=== PATIENT | female | born 1965 | race Caucasian/White ===

== ENCOUNTER 2020-08-04 10:59 | Emergency (ER) | payer BC ==
[~2020-08-04 10:59] MED LIST: ASPIRIN EC81 MG PO; ATORVASTATIN CA40 MG PO; BUDESONIDE0.5 MG/2 M INH; MECLIZINE HCL25 MG PO; MELATONIN3 MG PO; PROAIR DIGIHAL90 MCG INH; SIMVASTATIN20 MG PO; SYMBICORT 16010.2 GM INH; TENORMIN 25 MG25 MG PO; TRIMETHOPRIM100 MG PO
[2020-08-04 13:51] LABS: HEMOGLOBIN 15.3 gm/dl (12.3-15.3); RED BLOOD COUNT 5.12 M/UL (4.00-5.10); WHITE BLOOD COUNT 8.8 K/UL (4.5-11.0)
[2020-08-04 14:19] LABS: BUN/CREATININE RATIO 17 (0-10)
[2020-08-09] MEDS ORDERED: CLARITIN 10MG T10 MG PO (10:14)
[2020-08-09] MEDS ORDERED: MONTELUKAST SOD10 MG PO (10:14)
[2020-08-09] MEDS ORDERED: ZOFRAN ODT 4 MG4 MG PO (10:14)
[2020-08-09] MEDS ORDERED: IPRAT-ALBUT 0.5-3 ML NEB (10:14)
[2020-08-09] MEDS ORDERED: MILLIPRED5 MG PO (10:14)
[2020-08-09] MEDS ORDERED: FLONASE 0.05% N16 GM (10:14)
[2020-08-09] MEDS ORDERED: GLUCOPHAGE 500500 MG PO (10:14)
[2020-08-09] MEDS ORDERED: METOPROLOL SUCC25 MG PO (10:14)
[2020-08-09] MEDS ORDERED: TESSALON PERLE100 MG PO (17:19)
[2020-08-09] MEDS ORDERED: CRESTOR40 MG PO (17:21)
== END 2020-08-04 17:00 | disposition home or self-care (01) ==
LOC: ER1 10:59
PROVIDERS: Physician Assistant
DX: J20.9 Acute bronchitis, unspecified (principal); J45.901 Unspecified asthma with (acute) exacerbation; R07.89 Other chest pain; E11.9 Type 2 diabetes mellitus without complications; I10 Essential (primary) hypertension; Z20.822 Contact with and (suspected) exposure to COVID-19; Z90.710 Acquired absence of both cervix and uterus; Z90.49 Acquired absence of other specified parts of digestive tract; Z88.5 Allergy status to narcotic agent; Z88.1 Allergy status to other antibiotic agents
CPT/HCPCS: 0240U; 36600; 71045; 80053; 82550; 82553; 82803; 83874; 84484; 85025; 87081; 87880; 93005; 94640; 94664; 96374; 99285; J2930

== ENCOUNTER 2020-08-06 05:02 | Inpatient (IN) | payer BC ==
[~2020-08-06] VITALS: Ht 165.1 cm; Wt 95.3 kg
[2020-08-06 05:27] LABS: RED BLOOD COUNT 4.74 M/UL (4.00-5.10); WHITE BLOOD COUNT 10.3 K/UL (4.5-11.0)
[2020-08-06 05:51] LABS: BUN/CREATININE RATIO 16 (0-10)
[2020-08-06] MEDS ORDERED: SIMVASTATIN20 MG PO (08:52)
[2020-08-06] MEDS ORDERED: HYDROXYZINE HCL25 MG PO (08:53)
[2020-08-06] MEDS ORDERED: OMEPRAZOLE40 MG PO (08:54)
[2020-08-06] MEDS ORDERED: ACID CONTROLLER20 MG PO (08:54)
[2020-08-06] MEDS ORDERED: ESTRADIOL0.5 MG PO (08:55)
[2020-08-06] MEDS ORDERED: PROMETRIUM 200200 MG PO (08:55)
--- NOTE | 2020-08-06 12:29 | NUR ---
NOTIFIED BY TELEMETRY THAT THEY HAVE NO PULSE OXIMETRY MONITORING AVAILABLE FOR PATIENT AT THIS TIME. WILL BE NOTIFIED BY TELEMETRY WHEN ONE IS AVAILABLE. WILL MONITOR USING DYNAMAP FOR CURRENT TIME.
[2020-08-07 05:30] LABS: HEMOGLOBIN 13.8 gm/dl (12.3-15.3); RED BLOOD COUNT 4.7 M/UL (4.00-5.10); WHITE BLOOD COUNT 12.4 K/UL (4.5-11.0)
[2020-08-07 05:48] LABS: BUN/CREATININE RATIO 18 (0-10)
--- NOTE | 2020-08-08 02:11 | NUR ---
REPORT CALLED TO [facility], PATIENT BEING MOVED TO [id number]
--- NOTE | 2020-08-08 03:11 | NUR ---
08/08/2020 @ 02:20 - PATIENT TRANSFERRED TO [facility] FROM 4TH FLOOR. UPON ASSESSMENT, PATIENT IS STABLE. NO ACUTE CHANGES FROM ASSESSMENT PERFORMED BY PREVIOUS RN ON [place] [id number] ARE NOTED.
[2020-08-09 06:06] LABS: HEMOGLOBIN 14.9 gm/dl (12.3-15.3); RED BLOOD COUNT 4.97 M/UL (4.00-5.10); WHITE BLOOD COUNT 10.7 K/UL (4.5-11.0)
[2020-08-09 06:51] LABS: BUN/CREATININE RATIO 20 (0-10)
[2020-08-09] MEDS ORDERED: MILLIPRED5 MG PO (10:14)
[2020-08-09] MEDS ORDERED: FLONASE 0.05% N16 GM (10:14)
[2020-08-09] MEDS ORDERED: GLUCOPHAGE 500500 MG PO (10:14)
[2020-08-09] MEDS ORDERED: ZOFRAN ODT 4 MG4 MG PO (10:14)
[2020-08-09] MEDS ORDERED: CLARITIN 10MG T10 MG PO (10:14)
[2020-08-09] MEDS ORDERED: METOPROLOL SUCC25 MG PO (10:14)
[2020-08-09] MEDS ORDERED: MONTELUKAST SOD10 MG PO (10:14)
[2020-08-09] MEDS ORDERED: IPRAT-ALBUT 0.5-3 ML NEB (10:14)
[2020-08-09] MEDS ORDERED: TESSALON PERLE100 MG PO (17:19)
[2020-08-09] MEDS ORDERED: CRESTOR40 MG PO (17:21)
[2020-08-12 00:11] LABS: D001-IGE D PTERONYSSINUS <0.10 kU/L (Class 0); D002-IGE D FARINAE <0.10 kU/L (Class 0); E001-IGE CAT DANDER <0.10 kU/L (Class 0); E005-IGE DOG DANDER <0.10 kU/L (Class 0); G002-IGE BERMUDA GRASS <0.10 kU/L (Class 0); G006-IGE TIMOTHY GRASS <0.10 kU/L (Class 0); M001-IGE PENICILLIUM CHRYSOGEN <0.10 kU/L (Class 0); M002-IGE CLADOSPORIUM HERBARUM <0.10 kU/L (Class 0); M003-IGE ASPERGILLUS FUMIGATUS <0.10 kU/L (Class 0); M006-IGE ALTERNARIA ALTERNATA <0.10 kU/L (Class 0); T001-IGE MAPLE/BOX ELDER <0.10 kU/L (Class 0); T003-IGE COMMON SILVER BIRCH <0.10 kU/L (Class 0); T006-IGE CEDAR, MOUNTAIN <0.10 kU/L (Class 0); T007-IGE OAK, WHITE <0.10 kU/L (Class 0); T010-IGE WALNUT <0.10 kU/L (Class 0); T011-IGE MAPLE LEAF SYCAMORE <0.10 kU/L (Class 0); T014-IGE COTTONWOOD <0.10 kU/L (Class 0); T015-IGE ASH, WHITE <0.10 kU/L (Class 0); T070-IGE WHITE MULBERRY <0.10 kU/L (Class 0); W001-IGE RAGWEED, SHORT <0.10 kU/L (Class 0); W018-IGE SHEEP SORREL <0.10 kU/L (Class 0)
== END 2020-08-09 11:41 | disposition home or self-care (01) | DRG 202 ==
LOC: ER1 05:02 → CDU 08:24 → MED SURG 4 08:24 → M/S 08-08 01:06
PROVIDERS: Family Medicine; Nurse Practitioner Family; ADMIT Internal Medicine
DX: J45.901 Unspecified asthma with (acute) exacerbation (principal); J96.01 Acute respiratory failure with hypoxia; I10 Essential (primary) hypertension; Z20.822 Contact with and (suspected) exposure to COVID-19; E66.9 Obesity, unspecified; E78.5 Hyperlipidemia, unspecified; G47.33 Obstructive sleep apnea (adult) (pediatric); E11.65 Type 2 diabetes mellitus with hyperglycemia; Z90.49 Acquired absence of other specified parts of digestive tract; Z90.710 Acquired absence of both cervix and uterus; Z88.6 Allergy status to analgesic agent; Z88.8 Allergy status to other drugs, medicaments and biological substances; Z82.5 Family history of asthma and other chronic lower respiratory diseases; Z79.4 Long term (current) use of insulin; Z68.34 Body mass index [BMI] 34.0-34.9, adult
CPT/HCPCS: 0240U; 36415; 36600; 71045; 71046; 80053; 82550; 82553; 82785; 82803; 82962; 83036; 83874; 84484; 85025; 86140; 87081; 87880; 93005; 94640; 94664; 94760; 96374; 96375; 99285; J1650; J2405; J2920; J2930; J3475

== ENCOUNTER → 2020-10-09 | Outpatient (CLI) | payer BC ==
[~2020-10-09] MED LIST changes: +ACID CONTROLLER20 MG PO; +CLARITIN 10MG T10 MG PO; +COMPAZINE10 MG PO; +CRESTOR40 MG PO; +ESTRADIOL0.5 MG PO; +FLONASE 0.05% N16 GM; +GLUCOPHAGE 500500 MG PO; +HYDROXYZINE HCL25 MG PO; +IPRAT-ALBUT 0.5-3 ML NEB; +METOPROLOL SUCC25 MG PO; +MILLIPRED5 MG PO; +MONTELUKAST SOD10 MG PO; +OMEPRAZOLE40 MG PO; +PROMETRIUM 200200 MG PO; +REGLAN10 MG PO; +TESSALON PERLE100 MG PO; +ZOFRAN ODT 4 MG4 MG PO
== END ==
LOC: CT 07:32
DX: R10.11 Right upper quadrant pain (principal); K44.9 Diaphragmatic hernia without obstruction or gangrene
CPT/HCPCS: 36415; 82565; Q9967

== ENCOUNTER 2020-10-25 17:33 | Emergency (ER) | payer BC ==
[~2020-10-25 17:33] MED LIST changes: -COMPAZINE10 MG PO; -REGLAN10 MG PO
[2020-10-25 20:02] LABS: HEMOGLOBIN 14.7 gm/dl (12.3-15.3); RED BLOOD COUNT 4.93 M/UL (4.00-5.10); WHITE BLOOD COUNT 5.9 K/UL (4.5-11.0)
[2020-10-25 20:17] LABS: BUN/CREATININE RATIO 12 (0-10)
[2020-10-25] MEDS ORDERED: REGLAN10 MG PO (21:50)
[2020-10-25] MEDS ORDERED: COMPAZINE10 MG PO (21:52)
== END 2020-10-25 22:17 | disposition home or self-care (01) ==
LOC: ER1 17:33
PROVIDERS: Physician Assistant
DX: R11.10 Vomiting, unspecified (principal); R19.7 Diarrhea, unspecified; E86.0 Dehydration
CPT/HCPCS: 80053; 85025; 99284